=== PATIENT | female | born 1955 | race Caucasian/White ===

== ENCOUNTER → 2023-05-09 09:05 | Outpatient (REF) | payer OTHER, SELFPAY | LOC: HWRAD 09:05 | PROVIDERS: ATTENDING PHYSICIAN Family Medicine | DX: Z78.0 Asymptomatic menopausal state (principal) | CPT/HCPCS: 77080 ==

== ENCOUNTER → 2023-05-28 11:28 | Outpatient (REF) | payer OTHER, SELFPAY | LOC: HWRAD 11:28 | PROVIDERS: ATTENDING PHYSICIAN Family Medicine | DX: E04.1 Nontoxic single thyroid nodule (principal) | CPT/HCPCS: 76536 ==

== ENCOUNTER → 2023-07-24 14:20 | Outpatient (REF) | payer OTHER, SELFPAY | LOC: RAD 14:20 | PROVIDERS: ATTENDING PHYSICIAN Physician Assistant Medical | DX: Z11.52 Encounter for screening for COVID-19 (principal); R05.3 Chronic cough; R09.89 Other specified symptoms and signs involving the circulatory and respiratory systems | CPT/HCPCS: 71046 ==

== ENCOUNTER 2023-08-21 22:05 | Emergency (ER) | payer OTHER, SELFPAY ==
[2023-08-21 22:06] VITALS: BP 176/96; BMI 33.3
--- NOTE | 2023-08-22 00:11 | ED.GENMED ---
History of Present Illness
General
Chief Complaint: Fall
Source: patient and family (Daughter who is at bedside and interpreting)
Exam Limitations: none
Time Seen by Provider: 08/21/23 23:55
Nursing documentation reviewed up to this point in time: agreed with except (Patient states she slipped and fell onto left side, not her right side)
History of Present Illness
History of Present Illness:
This is a 68-year-old Citizen Of [place] speaking woman who presents via EMS after a slip and fall at her apartment complex while stepping out of an elevator. She states she slipped on water falling onto her left side injuring her left shoulder. She
believes she struck her head but denies loss of consciousness. She arrives via EMS and was able to stand and ambulate to wheelchair upon EMS arrival.
She denies headache, denies dizziness nor lightheadedness.
Her main complaint is left posterior shoulder discomfort, nonradiating.
She has history of hypertension, GERD, hyperlipidemia, anxiety, vertigo. Maintained on Protonix, losartan, Crestor.
During initial exam patient developed somewhat abrupt onset of moderate to severe epigastric to left upper quadrant discomfort, spasms which she and her daughter state is an ongoing chronic issue occurring on a near daily basis and is generally
improved if she eats or drinks something. Pain is worse with movement, improves if she lies on her left side. She reports unremarkable GI evaluation approximately 4 years ago. She has had intermittent nausea without vomiting. She is asking for
something to eat or drink to help with her left upper quadrant spastic pain.
She has history of vertigo, unremarkable MRI of the brain September 2021. She states fall today was a slip on water in nature and she denies dizziness nor lightheadedness.
Past History
Past History
ED Past Medical History: GERD, HTN, Hypercholesterolemia, Psychiatric (Anxiety) and Other (Chronic intermittent vertigo, chronic intermittent left upper quadrant pain)
ED Past Surgical History: None
Social History
Tobacco: Non-smoker
Alcohol: None
Personal:
Living: with family
Employment: Retired
Family History
Family History: Other (Noncontributory)
Phy Exam
Physical Exam
Physical Exam:
TRAUMA EXAM:
VITAL SIGNS/GENERAL: Vital signs reviewed, cooperative. 68-year-old woman appears her stated age, bright and alert, pleasant, initially appears in no acute distress and easily communicative. Understands Polish well, daughter is assisting with
interpreting. In midst of my initial exam patient developed abrupt onset of left upper quadrant pain, moderate in intensity. Reports similar episodes of left upper quadrant pain, ongoing for a number of years.
EYES: Pupils reactive, no orbital trauma
NOSE: No deformity or epistaxis
FACE AND SCALP: No scalp or facial trauma, external canals no blood
NECK: Supple nontender, full range of motion without difficulty nor pain. There is mild to moderate tenderness left superior trapezius musculature with mild local palpable muscle spasm.
BACK: Back nontender, pelvis stable to compression
RESPIRATORY: No distress, breath sounds normal, no tender chest wall
CARDIAC: No murmur, pulses equal and strong
ABDOMEN: Soft, initially nontender to palpation then, with onset of acute left upper quadrant pain there is mild tenderness epigastric, left upper quadrant as well as mild tenderness left distal costal margin. The abdomen is without distention, no
palpable masses, no CVA tenderness. Normoactive bowel sounds.
SKIN: Skin intact no bleeding, color normal
EXTREMITIES: Mild tenderness left superior shoulder with full shoulder range of motion without difficulty, no crepitus, no joint effusion. Bilateral hips with full range of motion without difficulty nor pain. No tenderness to the lower extremities.
NEUROLOGICAL: Alert, oriented, no motor deficits
PSYCH: Mildly anxious with onset of left upper quadrant pain. Cooperative.
Course
Orders/Labs/Results
Orders:
Orders
08/22/23 00:08
Mag Hydrox/Al Hydrox/Simeth [Maalox] 30 ml Phenobarb/Hyoscy/Atropine/Scop [] 10 ml Viscous Lidocaine 2% [Xylocaine Viscous Cup] 10 ml PO NOW
Shoulder, Left, Trauma CR [CR Shoulder, Trauma - Left] Urgent
Comment:
Reason For Exam: SLIP AND FALL ONTO LEFT SIDE
08/22/23 00:11
Mag Hydrox/Al Hydrox/Simeth [Maalox] 30 ml .ROUTE .STK-MED ONE
Phenobarb/Hyoscy/Atropine/Scop [] 10 ml .ROUTE .STK-MED ONE
Viscous Lidocaine 2% [Xylocaine Viscous Cup] 15 ml .ROUTE .STK-MED ONE
08/22/23 01:24
Acetaminophen [Tylenol] 1,000 mg PO NOW STA
Vital Signs
Initial and Last Documented VS:
Initial Vital Signs
Temp Pulse Resp BP Pulse Ox
98.0 F 88 20 176/96 100
08/21/23 22:06 08/21/23 22:06 08/21/23 22:06 08/21/23 22:06 08/21/23 22:06
Last Documented Vital Signs
Temp Pulse Resp BP Pulse Ox
98.0 F 88 20 123/76 94
08/21/23 22:06 08/21/23 22:06 08/21/23 22:06 08/22/23 01:05 08/22/23 01:15
MDM/Problems Addressed
Differential Diagnosis Includes:
Patient suffers patient suffered a slip and fall/mechanical fall onto her left side with primary complaint of left posterior shoulder pain. No obvious deformity nor soft tissue swelling, concern for potential fracture, will check x-ray of left
shoulder.
She also notes somewhat abrupt onset of severe left upper quadrant pain, and ongoing near daily issue for a number of years with repeat ported thus far unremarkable workup including GI evaluation.
Pain reportedly improves with eating or drinking, improves with lying on her left side, concern for possible gastritis other consideration is intermittent small bowel obstruction however no prior abdominal surgeries and pain reportedly resolves
within a few minutes to less than an hour. No prior ED visits for these episodes of abdominal pain.
Will trial a GI cocktail. If pain persists will consider imaging, laboratory studies.
*Radiology
Radiology exam reviewed: preliminary read by ED provider (Left shoulder x-rays unremarkable. Negative for fracture)
*Pulse Oximetry
Patient hypoxic: no
*Critical Care Note
Total Time (30-74mins, 75-104mins- exclusive of procedures): Not Applicable
Update Note
Update Note:
08/22/2023 0125 AM
Patient resting comfortably reports complete and prompt relief of left upper quadrant pain after GI cocktail.
Abdomen is now soft, nontender.
Left shoulder x-rays unremarkable.
As intermittent upper abdominal pain has been chronic, ongoing for many years, at this point unclear as to etiology but reassuring with prompt relief with GI cocktail. She may have an element of hiatal hernia, intermittent gastritis. Less likely
bowel obstruction/intussusception, bowel ischemia.
As there is some concern for gastritis recommend she avoid NSAIDs and stick with Tylenol for as needed pain.
Continue daily pantoprazole.
A prescription for GI cocktail has been provided to patient that she can take for as needed upper abdominal pain.
Recommend prompt follow-up with PCP for recheck.
I also recommend she follow-up with GI regarding her ongoing intermittent left upper quadrant abdominal pain.
ED Attending Note
-
Portions of this chart may have been created with voice recognition software.� Occasional wrong word or��sound alike� substitutions may have occurred due to the inherent limitations of voice recognition software.
Discharge Plan
Departure
Patient Disposition: Home (Routine Discharge)
Date of Disposition: 08/22/23
Time of Disposition: 01:26
Patient with high blood pressure during this ER visit?: No
Condition: Good
Discharge Problem:
Fall from slipping, Contusion of left shoulder, chronic, intermittent LUQ abdominal pain
Instructions: Contusion (DC), Preventing falls in adults, Gastritis ED
Referrals:
Delroy Cardona MD [Active] - Call in 1-3 days for appt
Rissa Andrews MD [Family Provider] - Call in 1-3 days for appt
Interventions
Interventions:
*Risk Screen - Suicide Last Done: 08/21/23 22:06
*General Assessment Last Done: 08/22/23 00:18
*Neglect/Abuse Screening Last Done: 08/21/23 22:06
ED- Fall Risk Assessment Last Done: 08/21/23 22:06
*ED COVID-19 Vaccine History Last Done: 08/22/23 00:18
*Nursing Disposition Last Done: 08/22/23 01:39
ED-Musculoskeletal Assessment Last Done: 08/22/23 00:19
ED- Neurological Assessment Last Done: 08/22/23 00:19
ED-Skin Assessment Last Done: 08/22/23 00:19
Discharge Date and Time
Discharge Date/Time: 08/22/23 01:40
Print Language: HONG KONGER
[2023-08-22] MEDS: MAALOX 50 PO (00:14)
[2023-08-22 01:05] VITALS: BP 123/76
[2023-08-22] MEDS: TYLENOL 1000 MG PO (01:30)
== END 2023-08-22 01:40 | disposition home or self-care (01) ==
LOC: EMR 22:05
PROVIDERS: EMERGENCY PHYSICIAN Emergency Medicine; FAMILY PHYSICIAN Family Medicine
DX: S40.012A Contusion of left shoulder, initial encounter (principal); W01.0XXA Fall on same level from slipping, tripping and stumbling without subsequent striking against object, initial encounter; G89.29 Other chronic pain; R10.12 Left upper quadrant pain; I10 Essential (primary) hypertension; K21.9 Gastro-esophageal reflux disease without esophagitis; E78.5 Hyperlipidemia, unspecified
CPT/HCPCS: 99283; 73030

== ENCOUNTER 2023-09-16 17:47 | Emergency (ER) | payer OTHER, SELFPAY ==
[2023-09-16 17:53] VITALS: BP 154/96
[2023-09-16 18:14] LABS: % Basophils 0.4 % (0-2); % Immature Granulocytes 0.3 % (0-0.5); % Lymphocytes 24.5 % (20.5-51.1); % Monocytes 7.3 % (1.7-9.3); % Neutrophils 65.5 % (42.2-75.2); Absolute Eosinophils 0.2 10^3/uL (0-0.7); Absolute Lymphocytes 2.4 10^3/uL (1.2-3.4); Absolute Monocytes 0.7 10^3/uL (0.1-0.6); Absolute Neutrophils 6.4 10^3/uL (1.4-6.5); Hematocrit 38.8 % (37.0-47.0); Hemoglobin 13.2 g/dL (12.0-16.0); Mean Corpuscular Hgb 30.8 pg (27.0-31.0); Mean Corpuscular Volume 90.4 fL (81.0-99.0); Mean Platelet Volume 10.2 fL (7.4-10.4); Nucleated Red Blood Cells % 0 %; Platelet Count 314 10^3/uL (130-400); Red Blood Cell Count 4.29 10^6/uL (4.20-5.40); Red Cell Dist. Width 12.6 % (11.5-14.5); White Blood Cell Count 9.8 10^3/uL (4.8-10.8)
[2023-09-16 18:29] LABS: ALT (SGPT) 28 U/L (0-35); AST (SGOT) 31 U/L (14-36); Albumin 4.7 g/dl (3.5-5.0); Alkaline Phosphatase 74 U/L (38-126); Blood Urea Nitrogen 19 mg/dl (7-17); Calcium 9.9 mg/dl (8.4-10.2); Carbon Dioxide 29 mmol/L (22-30); Chloride 101 mmol/L (98-107); Glucose 121 mg/dl (70-99); Potassium 4.1 mmol/L (3.5-5.1); Sodium 139 mmol/L (135-145); Total Bilirubin 0.6 mg/dl (0.2-1.3); Total Protein 7.1 g/dl (6.3-8.2); eGFR > 60.00
[2023-09-16 18:45] LABS: NT-proBNP 55.7 pg/ml
--- NOTE | 2023-09-16 20:02 | ED.GENMED ---
History of Present Illness
General
Chief Complaint: Swelling
Source: family (Daughter)
Exam Limitations: other (Language barrier with patient)
Time Seen by Provider: 09/16/23 19:28
History of Present Illness
History of Present Illness:
This is a 68 year old female that comes in with c/o right ankle pain and welling. Daughter states that she has a baby cat and on she was walking in the kitchen and she twisted her ankle. States that she was trying to not step on the cat and
patient fell. Patient has a contusion of the left eye and her right heel is red and swollen. Denies any fever, chills, chest pain SOB, abd pain, nausea, vomiting, diarrhea, headache, dizziness, urinary burning.
Past History
Past History
ED Past Medical History: GERD, HTN, Hypercholesterolemia, Psychiatric (Anxiety) and Other (Chronic intermittent vertigo, chronic intermittent left upper quadrant pain)
ED Past Surgical History: None
Social History
Tobacco: Non-smoker
Alcohol: None
Personal:
Living: with family
Employment: Retired
Family History
Family History: Other (Noncontributory)
Review of Systems
Review of Systems
All Other Systems: ROS reviewed and negative except as documented in HPI and ROS
Constitutional: Reports no symptoms; Denies fever or chills
EENT: Reports no symptoms
Respiratory: Reports no symptoms; Denies cough or trouble breathing
Cardiac: Reports no symptoms; Denies chest pain
ABD/GI: Reports no symptoms; Denies abdominal pain, nausea, vomiting or diarrhea
: Reports no symptoms; Denies dysuria, frequency or urgency
Musculoskeletal: Reports joint pain (Right ankle pain and swelling)
Skin: Reports other (redness of the heel)
Neurological: Reports no symptoms; Denies dizzy or headache
Psychiatric: Reports no symptoms
Phy Exam
General Physical Exam
General Presentation: no apparent distress
General age: appears stated age
General Skin: warm and dry
General Habitus: normal
General Mental: alert
General Hydration: dry mucous membranes
ENT Exam
ENT Exam: TM's normal, pharynx normal and neck supple
Eye Exam
Eye Exam: EOMI
Cardiovascular Exam
Cardiovascular Exam: regular rate/rhythm, no edema, no murmur and normal peripheral pulses
Pulmonary Exam
Pulmonary Exam: lungs clear, no respiratory distress, no rales, chest non tender, no crackles, no rhonchi, no wheezing and no cough
Gastrointestinal Exam
Gastrointestinal Exam: normal bowel sounds, non tender, soft, no organomegaly, no pulsatile mass and non distended
Musculoskeletal Exam
Musculoskeletal Exam: joint swelling (Right ankle with contusion noted posterior lower leg up to the knee,) and other (Negative for any cervical neck or spinal tenderness. )
Skin Exam
Skin Exam: normal color, warm/dry, no petechia, redness (Redness of the right heel with increased warmth. ) and other (Contusion posterior right leg from the ankle to the knee, )
Psychiatric Exam
Psychiatric Exam: normal mood/affect
Scores
Heart Failure Risk
Heart Failure Risk Score: Not Applicable
Course
Orders/Labs/Results
Orders:
Orders
09/16/23 17:55
US Legs, Right [US Periph Venous LOWER Ext RT] Urgent
Comment:
Reason For Exam: swelling
09/16/23 17:57
CR Ankle - Right Min 3 Views * Urgent
Comment:
Reason For Exam: pain
09/16/23 18:04
Complete Blood Count/With Diff Urgent
Comprehensive Metabolic Panel Urgent
NT-proBNP Urgent
09/16/23 20:03
Cephalexin Monohydrate [Keflex] 500 mg PO NOW STA
09/16/23 20:09
Ortho Boot Right- Treatment ONCE
Short or tall?: Tall
Abnormal Lab Results
09/16/23
18:04
Absolute Monos (auto) 0.7 H 10^3/uL
(0.1-0.6)
BUN 19 H mg/dl
(7-17)
Glucose 121 H mg/dl
(70-99)
09/16/23 18:04
09/16/23 18:04
Slight Dehydration. Gucose nonfasting. Pro-BNP 55.7
Vital Signs
Initial and Last Documented VS:
Initial Vital Signs
Temp Pulse Resp BP Pulse Ox
98.9 F 98 20 154/96 98
09/16/23 17:53 09/16/23 17:53 09/16/23 17:53 09/16/23 17:53 09/16/23 17:53
Last Documented Vital Signs
Temp Pulse Resp BP Pulse Ox
98.9 F 88 18 155/86 97
09/16/23 17:53 09/16/23 20:10 09/16/23 20:10 09/16/23 20:10 09/16/23 20:10
MDM/Problems Addressed
Differential Diagnosis Includes:
Ankle fracture
MDM/Problems Addressed:
This is a 68 year old female that comes in with c/o right ankle pain and swelling. Daughter states that she twisted her ankle on . Patient has redness of the heel with swelling.
Will get X-ray, labs and US.
Explained to daughter that her mother broke her ankle. Patient has a Fracture of the distal fibula. Will place patient on a Orthopedic boat and have her follow up with the review specialist. Patient also appears to have Cellulitis of the right
foot in the heel and posterior lower leg. Will place patient on antibiotics. Ultrasound pending.
US is negative will discharge patient home.
Chronic conditions affecting care:
NA
Acute Exacerbation and/or Progression of Chronic Illness:
NA
*Radiology
Radiology exam reviewed: radiology read reviewed (US-NO sonographic evidence for right lwoer extremity deep venous thrombosis . Right ankle-Oblique fracture of the distal fibula. )
*Pulse Oximetry
Patient hypoxic: no
*EKG
Interpreted by ED Provider?: NA
Rate: EKG- N/A
*System Development Manager Interpretation
Rate: System Development Manager- N/A
*Critical Care Note
Total Time (30-74mins, 75-104mins- exclusive of procedures): Not Applicable
ED Attending Note
-
Portions of this chart may have been created with voice recognition software.� Occasional wrong word or��sound alike� substitutions may have occurred due to the inherent limitations of voice recognition software.
Discharge Plan
Departure
Patient Disposition: Home (Routine Discharge)
Date of Disposition: 09/16/23
Time of Disposition: 20:34
Patient with high blood pressure during this ER visit?: Yes
Condition: Good
Covid-19: Not Applicable
Discharge Problem:
Ankle fracture, right, Cellulitis of right ankle
Instructions: Ankle Fracture ED, Cellulitis (Skin Infection), Adult ED, BLOOD PRESSURE
Prescriptions:
New
cephalexin 500 mg capsule
500 mg PO BID 10 Days Qty: 20 0RF
Referrals:
Faith Sommer I., DO [Active] - Follow up in 2-3 days
Activity Restrictions/Additional Instructions:
As discussed, your blood work shows slight Dehydration. Please increase your water intake to 8-8oz glasses daily. Your ultrasound is negative for any blood clots. You do have a fracture of the right ankle. Please wear the orthopedic boat when you
are up moving around. Elevate your leg when sitting and apply ice. Tylenol or Ibuprofen for pain. Follow up with the review specialist in the next 2-3 day for further evaluation. You also have increased redness of the foot into the heel and
lower leg. This may be a developing cellulitis. You have been given a prescription here and a prescription has been sent to your Pharmacy. IF YOU HAVE FEER, INCREASED REDNESS, OR YOU HAVE ANY OTHER CONCERNS PLEASE RETURN TO THE EMERGENCY ROOM.
Interventions
Interventions:
*Risk Screen - Suicide Last Done: 09/16/23 17:53
*General Assessment Last Done: 09/16/23 17:53
*Neglect/Abuse Screening Last Done: 09/16/23 17:53
ED- Fall Risk Assessment Last Done: 09/16/23 19:56
ED- Cardiac Assessment Last Done: 09/16/23 19:55
ED- Pulmonary Assessment Last Done: 09/16/23 19:55
ED-Skin Assessment Last Done: 09/16/23 19:55
Discharge Date and Time
Print Language: SAMOAN
[2023-09-16] MEDS: KEFLEX 500 MG PO (20:08)
[2023-09-16 20:10] VITALS: BP 155/86
== END 2023-09-16 20:52 | disposition home or self-care (01) ==
LOC: EMR 17:47
PROVIDERS: Emergency Medicine; EMERGENCY PHYSICIAN Student in an Organized Health Care Education/Training Program; FAMILY PHYSICIAN Family Medicine
DX: L03.115 Cellulitis of right lower limb (principal); S82.831A Other fracture of upper and lower end of right fibula, initial encounter for closed fracture; S80.11XA Contusion of right lower leg, initial encounter; R60.0 Localized edema; W18.39XA Other fall on same level, initial encounter; E86.0 Dehydration; I10 Essential (primary) hypertension; E78.00 Pure hypercholesterolemia, unspecified; F41.9 Anxiety disorder, unspecified; K21.9 Gastro-esophageal reflux disease without esophagitis
CPT/HCPCS: 99284; 29515; 73610; 80053; 83880; 85025; 93971

== ENCOUNTER 2025-02-19 09:48 | Emergency (ER) | payer OTHER, SELFPAY ==
[2025-02-19 09:56] VITALS: BP 147/75
[2025-02-19 10:49] LABS: Hematocrit 40.2 % (37.0-47.0); Hemoglobin 13.6 g/dL (12.0-16.0); Mean Corp Hgb Conc. 33.8 g/dL (33.0-37.0); Mean Corpuscular Volume 94.4 fL (81.0-99.0); Nucleated Red Blood Cells % 0 %; Platelet Count 293 10^3/uL (130-400); Red Cell Dist. Width 12.7 % (11.5-14.5)
--- NOTE | 2025-02-19 10:59 | ED.GENMED ---
History of Present Illness
General
Chief Complaint: Swelling
Time Seen by Provider: 02/19/25 10:41
History of Present Illness
History of Present Illness:
Patient is a 69-year-old female with past medical history of hypertension, dizziness, anxiety who presents complaining of bilateral lower extremity edema that is worse at night and left back pain. She denies any chest pain, shortness of breath. No
recent illness, fevers, chills, nausea, vomiting. Reports that she just wanted to be evaluated while she was here in the area as she [place] but obviously does not want to see any doctors or go to the emergency room there.
Past History
Past History
ED Past Medical History: GERD, HTN, Hypercholesterolemia, Psychiatric (Anxiety) and Other (Chronic intermittent vertigo, chronic intermittent left upper quadrant pain)
ED Past Surgical History: None
Social History
Tobacco: Non-smoker
Alcohol: None
Personal:
Living: with family
Employment: Retired
Family History
Family History: Other (Noncontributory)
Phy Exam
General Physical Exam
General Presentation: well appearing and no apparent distress
General Skin: warm and dry
General Habitus: normal
General Mental: alert
General Hydration: appears well hydrated
ENT Exam
ENT Exam: EOMI, pharynx normal, neck supple and normocephalic
Eye Exam
Eye Exam: PERRL, cornea clear and conjunctiva normal
Cardiovascular Exam
Cardiovascular Exam: regular rate/rhythm, no edema, no murmur and normal peripheral pulses
Pulmonary Exam
Pulmonary Exam: lungs clear, no respiratory distress, no rales, no crackles, no rhonchi, no stridor, no wheezing and no cough
Gastrointestinal Exam
Gastrointestinal Exam: normal bowel sounds, non tender, soft, no organomegaly, no pulsatile mass and non distended
Neurological Exam
Neurological Exam: alert, oriented x3, no motor deficits and speech normal
Musculoskeletal Exam
Musculoskeletal Exam: full ROM and edema
Skin Exam
Skin Exam: normal color, warm/dry, no rash, no petechia and other (Healing wound to right bryan)
Psychiatric Exam
Psychiatric Exam: normal mood/affect
Scores
Heart Failure Risk
Heart Failure Risk Score: Yes
History of Stroke or TIA: No
History of intubation for respiratory distress: No
Heart rate on ED arrival >/= 110: No
SaO2 <90% on arrival on room air: No
HR >/=110 during 3min walk test (or too ill to perform test): No
ECG has acute ischemic changes: No
Urea >/=12mmol/L (BUN 33.6mg/dL): No
Serum CO2>/=35mmol/L: No
Troponin I or T elevated to OK Level (0.4mg/dL): No
NT-proBNP >/=5,000ng/L (5,000pg/ml): No
HF Risk Score: 0
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
Course
Orders/Labs/Results
Orders:
Orders
02/19/25 10:30
Electrocardiogram (*1) Urgent
Reason for Study: Other
Other Reason for Exam: upper back pain and leg swelling
EKG- Treatment ONCE
02/19/25 10:38
CMP [Comprehensive Metabolic Panel] Urgent
Complete Blood Count/With Diff Urgent
Troponin I Urgent
02/19/25 10:59
US Legs, Bilateral [US Periph Venous LOWER Ext Laex] Urgent
Comment:
Reason For Exam: swelling, redness
02/19/25 13:11
Urinalysis Reflex To Culture Urgent
Date Specimen was Collected: 02/19/25
Time Specimen was Collected: 11:05
Urine Microscopic Reflex Cult Urgent
Abnormal Lab Results
02/19/25 02/19/25
10:38 13:11
MCH 31.9 H pg
(27.0-31.0)
Monocytes % 9.6 H %
(1.7-9.3)
Carbon Dioxide 31 H mmol/L
(22-30)
Glucose 100 H mg/dl
(70-99)
Ur Occult Blood Reflex 2+ A
(Negative)
02/19/25 10:38
02/19/25 10:38
Vital Signs
Initial and Last Documented VS:
Initial Vital Signs
Temp Pulse Resp BP Pulse Ox
36.8 C 72 20 147/75 99
02/19/25 09:56 02/19/25 09:56 02/19/25 09:56 02/19/25 09:56 02/19/25 09:56
Last Documented Vital Signs
Temp Pulse Resp BP Pulse Ox
36.8 C 72 20 143/70 94
02/19/25 09:56 02/19/25 09:56 02/19/25 09:56 02/19/25 12:02 02/19/25 12:30
MDM/Problems Addressed
Differential Diagnosis Includes:
Patient is concerned for lower extremity blood clots that she has a friend who told her that she may have 1. Ultrasound was obtained and is negative for any DVTs. Patient does endorse that lower extremity is at baseline currently and only worsens
after she is up walking around all day. Encouraged her to wear compression socks take frequent breaks. Elevate her legs when able to. In terms of her back pain she reports that it began after carrying groceries does not radiate to the flank.
Worse with movement of her arm. Pain is likely muscular in nature and I encouraged her to use Tylenol and Motrin.
Basic labs obtained and all within normal limits. UA negative for any occult infection.
Return precautions discussed. Patient will be discharged to home.
*Pulse Oximetry
SaO2: 99
Oxygen Mode of Delivery: Room air
Patient hypoxic: no
*Critical Care Note
Total Time (30-74mins, 75-104mins- exclusive of procedures): Not Applicable
ED Attending Note
-
Portions of this chart may have been created with voice recognition software.� Occasional wrong word or��sound alike� substitutions may have occurred due to the inherent limitations of voice recognition software.
Discharge Plan
Departure
Patient Disposition: Home (Routine Discharge)
Date of Disposition: 02/19/25
Time of Disposition: 14:08
Patient with high blood pressure during this ER visit?: No
Discharge Problem:
Edema, Muscle strain
Prescriptions:
No Action
cephalexin 500 mg capsule
500 mg PO BID 10 Days Qty: 20 0RF
Referrals:
Rissa Andrews MD [Family Provider, [facility]]
Activity Restrictions/Additional Instructions:
You may take tylenol or motrin for pain. Use the muscle relaxer as needed. You should wear compression socks when you are up moving around throughout the day. And then rest and elevate your feet at night. Follow-up with your primary care
physician regarding your lower extremity edema
Interventions
Interventions:
*General Assessment Last Done: 02/19/25 11:06
*Risk Screen - Suicide (C-SSRS) Last Done: 02/19/25 10:00
*Nursing Disposition Last Done: 02/19/25 14:18
ED- Cardiac Assessment Last Done: 02/19/25 11:06
ED- Pulmonary Assessment Last Done: 02/19/25 11:06
ED-Skin Assessment Last Done: 02/19/25 11:06
Discharge Date and Time
Discharge Date/Time: 02/19/25 14:20
Print Language: [id number]
[2025-02-19 11:05] LABS: ALT (SGPT) 25 U/L (0-35); AST (SGOT) 30 U/L (14-36); Albumin 4.4 g/dl (3.5-5.0); Alkaline Phosphatase 67 U/L (38-126); Blood Urea Nitrogen 13 mg/dl (7-17); Calcium 9.4 mg/dl (8.4-10.2); Carbon Dioxide 31 mmol/L (22-30); Chloride 103 mmol/L (98-107); Glucose 100 mg/dl (70-99); Potassium 4.3 mmol/L (3.5-5.1); Sodium 138 mmol/L (135-145); Total Protein 7.1 g/dl (6.3-8.2); eGFR > 60.00
[2025-02-19 11:16] LABS: Troponin I < 0.012 ng/ml
[2025-02-19 12:00] VITALS: BP 145/72
[2025-02-19 12:02] VITALS: BP 143/70
[2025-02-19 13:54] LABS: Urine Character Clear (Clear)
[2025-02-19 14:50] LABS: Urine Squamous Cell 0-2 /LPF (Few); Urine White Cell None Seen /HPF (0-5)
== END 2025-02-19 14:20 | disposition home or self-care (01) ==
LOC: EMR 09:48
PROVIDERS: Emergency Medicine; Surgery Trauma Surgery; EMERGENCY PHYSICIAN Student in an Organized Health Care Education/Training Program; FAMILY PHYSICIAN Family Medicine
DX: R60.0 Localized edema (principal); S29.012A Strain of muscle and tendon of back wall of thorax, initial encounter; X58.XXXA Exposure to other specified factors, initial encounter; I10 Essential (primary) hypertension; E78.00 Pure hypercholesterolemia, unspecified; F41.9 Anxiety disorder, unspecified; K21.9 Gastro-esophageal reflux disease without esophagitis
CPT/HCPCS: 99284; 80053; 81003; 81015; 84484; 85025; 93005; 93970